=== PATIENT | male | born 1990 | race African-American/Black ===

== ENCOUNTER 2019-05-16 22:14 | Emergency (ER) | payer BC, OTHER ==
[~2019-05-16] VITALS: Ht 180.3 cm; Wt 79.4 kg
[2019-05-16 22:47] LABS: ABSOLUTE NEUTROPHILS 5.8 thou/uL (1.4-8.2); BASOPHILS 0.4 % (0.0-2.0); EOSINOPHILS 0.9 % (0.0-3.0); HEMATOCRIT 40.6 % (42.0-52.0); HEMOGLOBIN 13.8 gm/dL (14.0-18.0); LYMPHOCYTES 8.6 % (24.0-44.0); MCH 29.2 pg (26.0-34.0); MCHC 33.9 g/dL (28.0-37.0); MONOCYTES 8.3 % (1.0-8.0); PLATELET COUNT 165 thou/uL (150-400); POLYS 81.8 % (36.0-66.0); RBC 4.72 mil/uL (4.50-6.00); RDW 13.1 % (10.5-14.5); WBC 7.1 thou/uL (4.0-11.0)
[2019-05-16 22:53] LABS: CALCIUM 9.5 mg/dL (8.5-10.1); CREATININE 1.3 mg/dL (0.7-1.3); POTASSIUM 4.1 mmol/L (3.5-5.1)
[2019-05-16 23:00] LABS: ALBUMIN 4.1 g/dL (3.4-5.0); TOTAL BILIRUBIN 0.4 mg/dL (<0.1-1.0); TOTAL PROTEIN 7.6 g/dL (6.4-8.2)
[2019-05-16 23:00] LABS: URINE BILIRUBIN NEGATIVE (Negative); URINE BLOOD NEGATIVE (Negative); URINE CLARITY CLEAR; URINE COLOR YELLOW; URINE GLUCOSE-RANDOM* NEGATIVE (Negative); URINE KETONES TRACE (Negative); URINE LEUKOCYTES NEGATIVE (Negative); URINE NITRITE NEGATIVE (Negative); URINE PROTEIN (DIPSTICK) NEGATIVE (Negative); URINE SPECIFIC GRAVITY 1.015 (1.005-1.035); URINE UROBILINOGEN 0.2 E.U./dl (0.2-1.0)
[2019-05-17] MEDS ORDERED: ZOFRAN ODT4 MG PO (01:46)
[2019-05-17 02:02] VITALS: BP 129/68
== END 2019-05-17 02:02 | disposition home or self-care (01) ==
LOC: ER 22:14 → EDBD 22:14 → ER 05-17 02:02
PROVIDERS: Emergency Medicine
DX: R50.9 Fever, unspecified (principal); R11.2 Nausea with vomiting, unspecified

== ENCOUNTER 2020-08-25 15:54 | Emergency (ER) | payer BC, OTHER ==
[~2020-08-25] VITALS: Ht 180.3 cm; Wt 79.4 kg
[~2020-08-25 15:54] MED LIST: ZOFRAN ODT4 MG PO
[2020-08-25 16:15] VITALS: BP 118/73
[2020-08-25] MEDS ORDERED: NORCO 5-325 TA1 EAC2 PO (17:05)
== END 2020-08-25 17:41 | disposition home or self-care (01) ==
LOC: ER 15:54
DX: S62.394A Other fracture of fourth metacarpal bone, right hand, initial encounter for closed fracture (principal); W51.XXXA Accidental striking against or bumped into by another person, initial encounter; Y93.67 Activity, basketball; Y92.89 Other specified places as the place of occurrence of the external cause; Y99.8 Other external cause status

== ENCOUNTER 2021-02-14 21:54 | Inpatient (IN) | payer OTHER ==
[~2021-02-14] VITALS: Ht 180.3 cm; Wt 77.1 kg
[~2021-02-14 21:54] MED LIST changes: +NORCO 5-325 TA1 EAC2 PO
[2021-02-14 22:11] VITALS: BP 107/65
[2021-02-14 22:30] LABS: ABSOLUTE NEUTROPHILS 5.4 thou/uL (1.4-8.2); BASOPHILS 0.8 % (0.0-2.0); EOSINOPHILS 0.1 % (0.0-3.0); HEMATOCRIT 44.6 % (42.0-52.0); HEMOGLOBIN 15.3 gm/dL (14.0-18.0); LYMPHOCYTES 18.4 % (24.0-44.0); MCH 29.5 pg (26.0-34.0); MCHC 34.2 g/dL (28.0-37.0); MCV 86.1 fL (80.0-100.0); PLATELET COUNT 226 thou/uL (150-400); POLYS 74.7 % (36.0-66.0); RBC 5.18 mil/uL (4.50-6.00); RDW 12.7 % (10.5-14.5); WBC 7.2 thou/uL (4.0-11.0)
[2021-02-14 22:41] LABS: ANION GAP 15 mmol/L (7-16); BUN 15 mg/dL (7-18); CALCIUM 9.8 mg/dL (8.5-10.1); CHLORIDE 100 mmol/L (98-107); CO2 25 mmol/L (21-32); CREATININE 1.3 mg/dL (0.7-1.3); GLUCOSE 91 mg/dL (74-106); POTASSIUM 3.8 mmol/L (3.5-5.1); SODIUM 140 mmol/L (136-145)
[2021-02-14 22:51] LABS: ALBUMIN 4.8 g/dL (3.4-5.0); SGOT 25 U/L (15-37); SGPT 23 U/L (30-65); TOTAL BILIRUBIN 0.5 mg/dL (0.2-1.0); TROPONIN-I <0.06 ng/mL (<0.06)
[2021-02-15 01:36] VITALS: BP 112/69
[2021-02-15 06:30] LABS: CHOLESTEROL 207 mg/dL (<200); HDL CHOLESTEROL 71 mg/dL (>40); LDL CHOLESTEROL 129 mg/dL (<100); TC:HDL 2.9 Ratio (Not establshd); TRIGLYCERIDE 35 mg/dL (<150); TROPONIN-I <0.06 ng/mL (<0.06); VLDL 7 mg/dL (<40)
[2021-02-15 06:32] LABS: SERUM ASSESSMENT Clear
[2021-02-15 06:45] LABS: FOLIC ACID 16.5 ng/mL (8.6-58.9)
[2021-02-15 12:15] VITALS: BP 112/72
[2021-02-15 15:17] VITALS: BP 119/77
[2021-02-15 15:54] VITALS: BP 119/75
--- NOTE | 2021-02-15 16:00 | 2DMMODE ---
[facility] [place] [address] 2 D/M-MODE ECHOCARDIOGRAM Name: DILLON COTTRELL Room #: 170-6 ADM IN M.R.#: [id number] Admission: 02/15/21 Attend Phys: Isa Johnson MD Discharge: Date of : 89 Report #: [id number] THIS REPORT FOR: cc: Ryan Smith MD, Richard K. MD Santiago, Patrick MD [facility] ~ APPROVED REPORT Study performed: 02/15/2021 09:42:54 EXAM: Comprehensive 2D, Doppler, and color-flow Echocardiogram Patient Location: Bedside Room #: ER-6 Status: on-call BSA: 1.97 HR: 65 bpm BP: 114/74 mmHg Rhythm: NSR Indications Chest Pain 2D Dimensions IVSd: 11.64 (7-11mm) LVOT Diam: 23.00 (18-24mm) LVDd: 47.68 mm PWd: 11.54 (7-11mm) Ascending Ao: 33.97 (22-36mm) LVDs: 31.07 (25-40mm) Aortic Root: 35.71 mm LV Single Plane 4CH: 58.14 % LV Single Plane 2CH: 49.81 % Biplane EF: 55.1 % Volumes Left Atrial Volume (Systole) Single Plane 4CH: 52.43 mL Single Plane 2CH: 35.43 mL LA ESV Index: 28.00 mL/m2 Aortic Valve AoV Peak Shane.: 1.27 m/s AO Peak Gr.: 6.45 mmHg LVOT Max P.03 mmHg LVOT Max V: 1.00 m/s LYUDMILA Vmax: 3.19 cm2 Mitral Valve [facility] [address] [place] [address] 2 D/M-MODE ECHOCARDIOGRAM Name: DILLON COTTRELL Room #: 170-6 ADM IN [facility]#: [id number] Admission: 02/15/21 Attend Phys: Isa Johnson MD Discharge: Date of : 89 Report #: [id number] E/A Ratio: 1.4 MV Decel. Time: 278.59 ms MV E Max Shane.: 0.72 m/s MV A Shane.: 0.50 m/s MV PHT: 80.79 ms IVRT: 55.36 ms TDI E/Lateral E': 7.20 E/Medial E': 7.20 Medial E' Shane.: 0.10 m/s Lateral E' Shane.: 0.10 m/s Pulmonary Valve PV Peak Shane.: 1.07 m/s PV Peak Gr.: 4.54 mmHg SC End Vmax: 1.28 m/s Pulmonary Vein P Vein S: 0.52 m/s P Vein A: 0.20 m/s P Vein D: 0.50 m/s P Vein A Dur.: 107.3 msec P Vein S/D Ratio: 1.04 Tricuspid Valve RAP Estimate: 7.00 mmHg Left Ventricle The left ventricle is normal size. There is normal LV segmental wall motion. There is normal left ventricular wall thickness. Left ventricular systolic function is normal. The left ventricular ejection fraction is within the normal range. LVEF is 55-60%. The left ventricular diastolic function is normal. Right Ventricle The right ventricle is normal size. The right ventricular systolic function is normal. Atria The left atrium size is normal. The right atrium size is normal. Aortic Valve The aortic valve is normal in structure. No aortic regurgitation is present. There is no aortic valvular stenosis. Mitral Valve The mitral valve is normal in structure. There is no mitral valve regurgitation noted. No evidence of mitral valve stenosis. [place] [id number] 2 D/M-MODE ECHOCARDIOGRAM Name: DILLON COTTRELL Room #: 170-6 ADM IN .R.#: [id number] Admission: 02/15/21 Attend Phys: Isa Johnson MD Discharge: Date of : 89 Report #: [id number] Tricuspid Valve The tricuspid valve is normal in structure. There is no tricuspid valve regurgitation noted. Pulmonic Valve The pulmonary valve is normal in structure. Mild pulmonic regurgitation. Great Vessels The aortic root is normal in size. The ascending aorta is normal in size. IVC is normal in size and collapses >50% with inspiration. Pericardium There is no pericardial effusion. <Conclusion> Normal left ventricular size/wall thickness Ejection fraction of 55% Normal right ventricular size/function Abnormal atrial size Color-flow Doppler study was performed of the aortic/mitral/tricuspid/pulmonary valve Normal aortic/mitral valve structure and function No tricuspid valve insufficiency Normal aortic root size No pericardial effusion <ELECTRONICALLY SIGNED> By: Tai Quiroga MD, FACC 02/15/211599 99 99 Tai Quiroga MD, FACC /INF
--- NOTE | 2021-02-16 11:24 | EKG ---
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1990 Requested By: Isa Johnson Order Number: [id number] : Tai Quiroga Measurements Intervals [place] Rate: 62 P: 58 MT: 150 QRS: 49 QRSD: 102 T: 20 QT: 405 QTc: 412 Interpretive Statements Sinus rhythm Prominent T wave inversion precordial leads, no change from 2017 Baseline wander in lead(s) V1,V3 Compared to ECG 03/13/2018 13:31:39 Myocardial infarct finding now present Sinus bradycardia no longer present Intraventricular conduction delay no longer present T-wave abnormality no longer present Early repolarization no longer present Electronically Signed On 02-16-2021 11:24:47 CDT by Tai Quiroga [email or web address] <ELECTRONICALLY SIGNED> By: Tai Quiroga MD, FACC 02/16/21 1124 01 01 Tai Quiroga MD, FAC /EPI
--- NOTE | 2021-02-16 11:25 | EKG ---
[address] [address] ELECTROCARDIOGRAM REPORT Name: DILLON COTTRELL Room #: 170-6 [facility] IN M.R.#: [id number] Admission: 02/15/21 Attend Phys: Isa Johnson MD Discharge: 02/15/21 Date of : [birth year] Report #: [id number] 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1990 Requested By: Florentin Waters Order Number: [id number] MD: Tai Quiroga Measurements Intervals [place] Rate: 60 P: 41 FL: 156 QRS: 29 QRSD: 115 T: 3 QT: 402 QTc: 402 Interpretive Statements Sinus rhythm Prominent T wave changes anterior leads, no change from 2016 Compared to ECG 03/13/2018 13:31:39 Sinus bradycardia no longer present Intraventricular conduction delay no longer present T-wave abnormality no longer present Early repolarization no longer present Electronically Signed On 02-16-2021 11:25:29 CDT by Tai Quiroga [email or web address] <ELECTRONICALLY SIGNED> By: Tai Quiroga MD, FACC 02/16/21 1125 08 08 Tai Quiroga MD, FAC /EPI
== END 2021-02-15 15:55 | disposition home or self-care (01) | DRG 313 ==
LOC: ER 21:54 → EROBS 02-15 01:11
PROVIDERS: Emergency Medicine; Nurse Practitioner; ADMIT Internal Medicine; ATTEND Internal Medicine
DX: R07.89 Other chest pain (principal); R22.42 Localized swelling, mass and lump, left lower limb; F12.90 Cannabis use, unspecified, uncomplicated; Z79.899 Other long term (current) drug therapy